=== PATIENT | male | born 1975 | race Caucasian/White ===

== ENCOUNTER → 2022-04-12 10:10 | Outpatient (CLI) | payer OTHER, SELFPAY ==
--- NOTE | ~2022-04-12 | MR_ITS ---
EXAMINATION: MR knee LT wo con DATE: 04/12/2022 10:41 INDICATION: Left lateral knee pain x1 year. No trauma. TECHNIQUE: Magnetic resonance imaging (MRI) of the left knee was performed without intravenous contra st. Sequences included axial PD-weighted FS FSE, coronal PD-weighted FSE and PD-weighted FS FSE, sagi ttal PD-weighted FSE, and sagittal T2-weighted FS FSE. COMPARISON: None. FINDINGS: Medial compartment: Meniscus and cartilage intact. Lateral compartment: Meniscus and cartilage intact. Patellofemoral compartment: Moderate diffuse thinning and cartilaginous fissuring on the lateral facet. Mild osteophytosis. Retin acula are intact. Ligaments and tendons: MCL, LCL, ACL, and PCL are intact. Flexor and extensor tendons are intact. Fluid: Small volume joint fluid. Osseous/other: Focal subchondral marrow edema in the lateral patellar facet, otherwise bone marrow signal is unremar kable. IMPRESSION: 1. Moderate chondromalacia patella. 2. Small left knee joint effusion. Reviewed, dictated and finalized at location K.
== END ==
PROVIDERS: PCP Family Medicine; Visit Provider Orthopaedic Surgery
DX: M25.462 Effusion, left knee (principal)
CPT/HCPCS: 73721